=== PATIENT | male | born 1965 | race Caucasian/White ===

== ENCOUNTER 2016-07-18 01:54 | Emergency (ER) | payer MEDICARE ==
[2016-07-18] MEDS ORDERED: BENADRYL 50 MG/ML IM ONE (02:00)
[2016-07-18] MEDS ORDERED: solu-CORTEF 250MG IM ONE (02:01)
[2016-07-18] MEDS ORDERED: solu-CORTEF 250MG ONE (02:04)
[2016-07-18] MEDS ORDERED: BENADRYL 50 MG/ML ONE (02:04)
--- NOTE | 2016-07-18 02:09 | ERPHSYRPT ---
- History of Present Illness Time Seen by Provider: 07/18/16 02:06 Source: patient Physician History: c/o skin rash, feels like tongue is swollen. took doxycycline approximately 3 hours ago. c/o shortness of breath Timing/Duration: today Severity: moderate Associated Symptoms: shortness of breath, other (skin rash) Allergies/Adverse Reactions: doxycycline Allergy (Verified 07/18/16 02:17) hives and tongue swelling Home Medications: Aspirin [Aspir 81] 81 mg PO DAILY 10/16/11 [History] Atorvastatin Calcium [Lipitor] 80 mg PO DAILY 10/16/11 [History] Digoxin 0.125 mg Tablet [Lanoxin 0.125MG TABLET] 0.125 mg PO DAILY [History] Furosemide 20 mg [Lasix 20 mg] 20 mg PO DAILY 10/16/11 [History] Isosorbide Mononitrate 60 mg [Imdur 60MG] 60 mg PO DAILY 10/16/11 [History] Lisinopril 5 mg PO DAILY 10/16/11 [History] Alprazolam [Xanax 0.5 mg] 0.5 mg PO HSPRN PRN 10/01/14 [History] Clopidogrel Bisulfate 75 mg [PLAVIX 75 MG Tablet] 75 mg PO DAILY 10/01/14 [History] Glipizide 10 mg [Glucotrol 10 MG] 10 mg PO BID 10/01/14 [History] Metformin HCl 1,000 mg PO BID 10/01/14 [History] Metoprolol Tartrate 25 mg PO DAILY 10/01/14 [History] Ranolazine [Ranexa] 500 mg PO BID 10/01/14 [History] Zolpidem Tartrate [Ambien] 10 mg PO HSPRN PRN 10/01/14 [History] Hx Tetanus, Diphtheria Vaccination/Date Given: Yes (2007) Hx Influenza Vaccination/Date Given: No Hx Pneumococcal Vaccination/Date Given: Yes (2015) - Review of Systems Constitutional: No Fever, No Chills Eyes: No Symptoms Ears, Nose, & Throat: No Symptoms Respiratory: Cough, No Dyspnea Cardiac: No Chest Pain, No Edema, No Syncope Abdominal/Gastrointestinal: No Abdominal Pain, No Nausea, No Vomiting, No Diarrhea Genitourinary Symptoms: No Dysuria Musculoskeletal: No Back Pain, No Neck Pain Skin: Rash Neurological: No Dizziness, No Focal Weakness, No Sensory Changes Psychological: No Symptoms Endocrine: No Symptoms All Other Systems: Reviewed and Negative - Past Medical History Pertinent Past Medical History: Yes Neurological History: No Pertinent History ENT History: No Pertinent History Cardiac History: Coronary Artery Disease, High Cholesterol, Hypertension, Myocardial Infarction ([place]) Respiratory History: COPD Endocrine Medical History: Diabetes Type II Musculoskeletal History: Other GI Medical History: No Pertinent History History: No Pertinent History Psycho-Social History: Depression Male Reproductive Disorders: No Pertinent History Other Medical History: "PROBLEMS WITH MY HEAD, MY NOSE, MY KNEES. - Past Surgical History Past Surgical History: Yes Neuro Surgical History: No Pertinent History Cardiac: CABG, Cardiac Stent Respiratory: No Pertinent History Gastrointestinal: No Pertinent History Genitourinary: No Pertinent History Musculoskeletal: No Pertinent History Male Surgical History: No Pertinent History - Social History Smoking Status: Former smoker Exposure to second hand smoke: No Drug Use: none Patient Lives Alone: No - Nursing Vital Signs Nursing Vital Signs: Initial Vital Signs Pulse Rate 95 Respiratory Rate 20 Blood Pressure [Right Arm] 98/67 Pain Intensity 0 - Physical Exam General Appearance: no apparent distress, alert Eye Exam: PERRL/EOMI, eyes nml inspection Ears, Nose, Throat Exam: normal ENT inspection, TMs normal, pharynx normal, moist mucous membranes Neck Exam: normal inspection, non-tender, supple, full range of motion Respiratory Exam: normal breath sounds, lungs clear, No respiratory distress Cardiovascular Exam: regular rate/rhythm, normal heart sounds, normal peripheral pulses Gastrointestinal/Abdomen Exam: soft, normal bowel sounds, No tenderness, No mass Back Exam: normal inspection, normal range of motion, No CVA tenderness, No vertebral tenderness Extremity Exam: normal inspection, normal range of motion, pelvis stable Neurologic Exam: alert, oriented x 3, cooperative, normal mood/affect, nml cerebellar function, nml station & gait, sensation nml, No motor deficits Skin Exam: normal color, warm, dry, No rash Lymphatic Exam: No adenopathy - Course Nursing assessment & vital signs reviewed: Yes Ordered Tests: Medication Summary Discontinued Medications Generic Name Dose Route Start Last Admin Trade Name Freq PRN Reason Stop Dose Admin Diphenhydramine HCl 50 mg 07/18/16 02:00 07/18/16 02:05 Benadryl 50 Mg/Ml IM 07/18/16 02:01 50 mg STAT ONE Administration Diphenhydramine HCl Confirm 07/18/16 02:04 Benadryl 50 Mg/Ml Administered 07/18/16 02:05 Dose 50 mg .ROUTE .STK-MED ONE Hydrocortisone Sodium Succinate 250 mg 07/18/16 02:01 07/18/16 02:05 Solu-Cortef 250mg IM 07/18/16 02:02 250 mg STAT ONE Administration Hydrocortisone Sodium Succinate Confirm 07/18/16 02:04 Solu-Cortef 250mg Administered 07/18/16 02:05 Dose 250 mg .ROUTE .STK-MED ONE - Progress Progress: improved Counseled pt/family regarding: diagnosis, need for follow-up - Departure Time of Disposition: 02:09 Departure Disposition: Home Clinical Impression: Allergic reaction to drug Qualifiers: Encounter type: initial encounter Qualified Code(s): T78.40XA - Allergy, unspecified, initial encounter Condition: Stable Critical Care Time: No Referrals: AURE MARTINEZ [Primary Care Provider] - Instructions: Adverse Drug Reaction -- Allergic Additional Instructions: ALLERGIC REACTION 1. There are several different reasons for the cause of an allergic reaction. If you are aware of a trigger, continue to avoid the problem. 2. If at any time you experience any of these signs or symptoms, you should seek medical attention immediately: A. Sudden onset of rash B. Wheezing C. Shortness of breath D. Thick tongue E. Dizziness 3. If you experience an allergic reaction and are treated in the emergency department, you should follow up with your family physician in order to determine how you will need to handle your allergy. Stop doxycycline. try to avoid doxycycline in future. Prescriptions: Methylprednisolone Packet [Medrol Dosepack] 4 mg PO UD #30 packet
[2016-07-18 02:10] VITALS: O2SAT 100
[2016-07-18 02:42] VITALS: BP 107/56; PULSE 78
== END 2016-07-18 02:42 | disposition home or self-care (01) ==
LOC: ED 01:54
DX: T78.40XA Allergy, unspecified, initial encounter (principal); T50.905A Adverse effect of unspecified drugs, medicaments and biological substances, initial encounter; R21 Rash and other nonspecific skin eruption; R06.02 Shortness of breath; I25.10 Atherosclerotic heart disease of native coronary artery without angina pectoris; E78.00 Pure hypercholesterolemia, unspecified; I10 Essential (primary) hypertension; J44.9 Chronic obstructive pulmonary disease, unspecified; E11.9 Type 2 diabetes mellitus without complications
CPT/HCPCS: 96372; 99284; J1200; J1720

== ENCOUNTER 2018-05-11 05:55 | Day surgery (SDC) | payer MEDICARE ==
[2018-05-11] MEDS ORDERED: DIPRIVAN 200 MG/20 ML IV ONE (05:56)
[2018-05-11] MEDS ORDERED: Lactated Ringers 1,000 ML IV SCH (06:30)
--- NOTE | 2018-05-11 07:47 | OP ---
SURGERY DATE/TIME: 05/11/2018 0703 PREOPERATIVE DIAGNOSIS: Dysphagia. POSTOPERATIVE DIAGNOSIS: Presumed delayed gastric emptying. PROCEDURE: EGD. SURGEON: Bhavik Le M.D. ANESTHESIA: MAC by Matt Chambers CRNA. ESTIMATED BLOOD LOSS: None. SPECIMENS: None. DESCRIPTION OF PROCEDURE: After informed written consent was obtained, the patient was taken to the endoscopy suite. He underwent monitored anesthesia and a bite block was inserted. The endoscope was inserted in the posterior oropharynx and under direct visualization the esophagus was traversed. The esophageal mucosa had a normal appearance free of any lesions or defects. There were no appreciable masses. No evidence of any strictures or other abnormalities. Upon entering the stomach there was a normal rugated gastric mucosa. There was a large amount of food debris present in the gastric cavity which obscured vision to most of the gastric cavity. Again, there were no obvious areas of bleeding or masses appreciable but the exam was definitely limited due to large amount of food particles. Upon withdrawal again the gastroesophageal junction and esophageal mucosa all appeared normal. The scope was removed and the patient was transferred to the recovery room in good condition. I discussed the case with the patient's mother. She does not believe he had anything to eat late last night. He had told us that he had been NPO since after midnight which suggests the most likely delayed gastric emptying as the culprit for food particles still present in the stomach. I have suggested they follow up with Dr. Marie and would recommend a gastric emptying study as the next step.
[2018-05-11 08:47] VITALS: BP 129/75; PULSE 65
[2018-05-11 08:48] VITALS: O2SAT 96
== END 2018-05-11 08:10 | disposition home or self-care (01) ==
LOC: SDC 05:55
PROVIDERS: ATTEND Family Medicine
DX: R13.10 Dysphagia, unspecified (principal); K30 Functional dyspepsia
CPT/HCPCS: 82962; J2704

== ENCOUNTER 2021-06-27 15:32 | Emergency (ER) | payer MEDICARE ==
[2021-06-27 16:21] LABS: Absolute Neutrophil Ct (ANC) 4.21 (1.4-6.9); Basophil (Absolute #) 0.03 (0-0.4); Eosinophil % 4.8 % (0.00-5.0); Eosinophil (Absolute #) 0.33 (0-0.5); Hematocrit 42.2 % (42-50); Hemoglobin 14.2 gm/dl (12.5-18.0); Lymphocyte (Absolute #) 1.84 (1.0-4.6); Mean Cell Volume 90.9 fl (78-100); Mean Corpuscular Hemoglobin 30.6 pg (26-32); Mean Corpuscular Hgb Concent. 33.6 g/dl (32-36); Mean Platelet Volume 9.3 fl (7.5-11.0); Monocytes % 5.9 % (0.0-12.0); Neutrophil % 61.9 % (36.0-66.0); Platelet Count 244 K/mm3 (150-450); Red Blood Count 4.64 M/mm3 (4.1-5.6); Red Cell Distribution Width 13.4 % (11.5-14.0); White Blood Count 6.8 K/mm3 (4.0-10.5)
[2021-06-27 16:23] LABS: INR 0.99 (0.8-3.0); PROTIME 11.7 SECONDS (9.4-12.5)
[2021-06-27 16:26] LABS: PTT 28.6 SECONDS (25.1-36.5)
[2021-06-27 16:28] LABS: ALBUMIN 4.2 g/dL (3.5-5.0); ANION GAP 12.6 MEQ/L (5-15); BILIRUBIN,TOTAL 0.7 mg/dL (0.2-1.3); Calcium 9.5 mg/dL (8.4-10.2); Creatinine 1 1.32 mg/dL (0.66-1.25); EST GLOMERULAR FILTRATION RATE 59.2 ML/MIN; Potassium 4.7 mmol/L (3.5-5.1); Total Protein 6.8 g/dL (6.3-8.2)
--- NOTE | 2021-06-27 16:54 | ERPHSYRPT ---
- History of Present Illness Source: patient Exam Limitations: other (Poor historian) Patient Subjective Stated Complaint: Pt states "My head has been hurting for a couple days and it shoots down the back of my neck. I have really bad acid reflux too and it is making my esophagus and chest burn." Triage Nursing Assessment: Pt alert and oriented x3, skin pink, warm, and dry, pt c/o headache and acid reflux that is making his chest and esophagus burn. pt took 1 nitro at 1430 and stated it made his chest fell better Physician History: 56 yo wm w global LARIOS x 2wks. Pt describes the pain as pressure and states that it is 1/10 on pain scale and nothing makes it better or worse. He has also been having mild chest pain described as "burning". It is accompanied by nausea but denies dyspnea/diaphoresis. Timing/Duration: week(s) (2 weeks) Quality: pressure Head Pain Location: global Severity of Pain-Max: mild Severity of Pain-Current: mild Recent Head Trauma: no recent headache/trauma, occasional headaches Modifying Factors: Improves With: other (Nothing makes it better or worse) Associated Symptoms: nausea/vomiting, nasal congestion, nasal drainage, No confusion, No dizziness, No fatigue, No facial pain, No fever/chills, No flushing, No light-headedness, No loss of consciousness, No neck pain, No numbness in legs/feet, No rash, No sweating, No scotoma, No seizures, No sinus infection, No sensitive to light, No speech problems, No stiff neck, No trouble walking, No vision changes, No visual disturbance, No weakness Previous symptoms: same symptoms as today Allergies/Adverse Reactions: doxycycline Allergy (Severe, Verified 05/11/18 06:08) hives and tongue swelling rosuvastatin [From Crestor] Allergy (Verified 05/11/18 06:08) Tightness of Throat Home Medications: Aspirin [Aspir 81] 81 mg PO DAILY 10/16/11 [History] Atorvastatin Calcium [Lipitor] 80 mg PO DAILY 10/16/11 [History] Furosemide 20 mg [Lasix 20 mg] 20 mg PO DAILY 10/16/11 [History] Isosorbide Mononitrate 60 mg [Imdur 60MG] 60 mg PO DAILY 10/16/11 [History] lisinopriL [Lisinopril] 5 mg PO DAILY 10/16/11 [History] Clopidogrel Bisulfate 75 mg [PLAVIX 75 MG Tablet] 75 mg PO DAILY 10/01/14 [History] Glipizide 10 mg [Glucotrol 10 MG] 10 mg PO BID 10/01/14 [History] Metformin HCl 1,000 mg PO BID 10/01/14 [History] Metoprolol Tartrate 25 mg PO DAILY 10/01/14 [History] Zolpidem Tartrate [Ambien] 10 mg PO HSPRN PRN 10/01/14 [History] Hx Tetanus, Diphtheria Vaccination/Date Given: Yes (2007) Hx Influenza Vaccination/Date Given: No Hx Pneumococcal Vaccination/Date Given: Yes (2015) Travel Risk - International Travel Have you traveled outside of the country in past 3 weeks: No - Coronavirus Screening Are you exhibiting any of the following symptoms?: No Close contact with a COVID-19 positive Pt in past 14-21 Days: No - Vaccine Status Have you recieved a Covid-19 vaccination: Yes [employer]: [employer] - Review of Systems Constitutional: No Symptoms Eyes: No Symptoms Ears, Nose, & Throat: No Symptoms, Nose Congestion, Nose Discharge Respiratory: No Symptoms, Dyspnea Cardiac: Chest Pain, No Edema, No Palpitations, No Syncope, No Orthopnea, No PND Abdominal/Gastrointestinal: No Symptoms, Abdominal Pain, Nausea, Dysphagia, No Vomiting, No Diarrhea, No Constipation, No Hematemesis, No Hematochezia, No Me etta, No Appetite Changes Genitourinary Symptoms: No Symptoms Musculoskeletal: No Symptoms Skin: No Symptoms Neurological: Headache, No Dizziness, No Focal Weakness, No Gait Changes, No Irritability, No Lethargy, No Paralysis, No Parasthesia, No Seizure, No Sensory Changes, No Speech Changes, No Tics, No Tremors, No Vertigo Psychological: No Symptoms Endocrine: No Symptoms Hematologic/Lymphatic: No Symptoms Immunological/Allergic: No Symptoms - Past Medical History Pertinent Past Medical History: Yes Neurological History: No Pertinent History ENT History: No Pertinent History Cardiac History: Coronary Artery Disease, High Cholesterol, Hypertension, Myocardial Infarction ([place]) Respiratory History: COPD Endocrine Medical History: Diabetes Type II Musculoskeletal History: Other GI Medical History: No Pertinent History History: No Pertinent History Psycho-Social History: Depression Male Reproductive Disorders: No Pertinent History Other Medical History: states has 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, states " poor kidney function" - Past Surgical History Past Surgical History: Yes Neuro Surgical History: No Pertinent History Cardiac: CABG, Cardiac Stent Respiratory: No Pertinent History Gastrointestinal: No Pertinent History, Cholecystectomy Genitourinary: No Pertinent History Musculoskeletal: No Pertinent History Male Surgical History: No Pertinent History Other Surgical History: open heart surgery 2001 and 2006 - Social History Smoking Status: Former smoker Exposure to second hand smoke: No Drug Use: none Patient Lives Alone: No Significant Family History: no pertinent family hx - Nursing Vital Signs Nursing Vital Signs: Initial Vital Signs Temperature 97.6 F 06/27/21 15:38 Pulse Rate 94 H 06/27/21 15:38 Respiratory Rate 12 06/27/21 15:38 Blood Pressure 170/85 06/27/21 15:38 O2 Sat by Pulse Oximetry 100 06/27/21 15:38 Pain Scale Pain Intensity 1 Hypertensive - Physical Exam General Appearance: no apparent distress Eye Exam: PERRL/EOMI, eyes nml inspection Ears, Nose, Throat Exam: normal ENT inspection, TMs normal, pharynx normal, moist mucous membranes, tonsillar exudate Neck Exam: normal inspection, non-tender, supple, No meningismus, No mass, No Brudzinski, No Kernig's, No carotid bruit Respiratory Exam: normal breath sounds, lungs clear, airway intact, No chest tenderness, No respiratory distress Cardiovascular Exam: regular rate/rhythm, normal heart sounds, normal peripheral pulses, No murmur Gastrointestinal/Abdominal Exam: soft, normal bowel sounds, No tenderness Back Exam: normal inspection, normal range of motion, No CVA tenderness Extremity Exam: normal inspection, normal range of motion Mental Status Exam: alert, oriented x 3, cooperative forestry technician Exam: normal hearing, normal speech, PERRL, No abnormal eye position, No abnormal gag reflex, No facial asymmetry Coordination/Gait Exam: normal gait, normal cerebellar function, negative Romberg's sign Motor/Sensory Exam: no motor deficit, no sensory deficit, no pronator drift, negative Babinski's sign DTR Exam: bicep (R): 2+, bicep (L): 2+ Skin Exam: normal color, warm, dry, No rash Lymphatic Exam: No adenopathy SpO2 Interpretation: normal SpO2: 99 O2 Delivery: Room Air - Course Nursing assessment & vital signs reviewed: Yes EKG Interpreted by Me: RATE (Sinus vaughn/Rate 57/Normal QT-QTc/Possible old in ferior SC/Nonspecific Twave abnormality) - Radiology Exams Chest X-ray Interpretation: Interpreted by me (Post-surgical chest, nothing acute) - CT Exams Head CT Interpretation: Discussed w/radiologist (NAD) Ordered Tests: Active Orders 24 hr Category Date Time Status EKG-ER Only STAT Care 06/27/21 16:03 Completed IV Insertion STAT Care 06/27/21 16:03 Completed CHEST 1 VIEW (PORTABLE) Stat Exams 06/27/21 16:04 Completed HEAD WITHOUT CONTRAST [CT] Stat Exams 06/27/21 16:05 Completed AMYLASE Stat Lab 06/27/21 16:17 Completed CBC W DIFF Stat Lab 06/27/21 16:17 Completed CMP Stat Lab 06/27/21 16:17 Completed LIPASE Stat Lab 06/27/21 16:17 Completed PROTIME WITH INR Stat Lab 06/27/21 16:17 Completed PTT Stat Lab 06/27/21 16:17 Completed TROPONIN Q3H Lab 06/27/21 16:17 Completed TROPONIN Q3H Lab 06/27/21 19:20 Completed Lab/Rad Data: Laboratory Result Diagrams 06/27/21 16:17 06/27/21 16:17 Laboratory Results 06/27/21 06/27/21 06/27/21 Range/Units 19:20 16:17 16:17 WBC (4.0-10.5) K/mm3 RBC (4.1-5.6) M/mm3 Hgb (12.5-18.0) gm/dl Hct (42-50) % MCV (78-100) fl MCH (26-32) pg MCHC (32-36) g/dl RDW (11.5-14.0) % Plt Count (150-450) K/mm3 MPV (7.5-11.0) fl Gran % (36.0-66.0) % Eos # (Auto) (0-0.5) Absolute Lymphs (auto) (1.0-4.6) Absolute Monos (auto) (0.0-1.3) Lymphocytes % (24.0-44.0) % Monocytes % (0.0-12.0) % Eosinophils % (0.00-5.0) % Basophils % (0.0-0.4) % Absolute Granulocytes (1.4-6.9) Basophils # (0-0.4) PT 11.7 (9.4-12.5) SECONDS INR 0.99 (0.8-3.0) APTT 28.6 (25.1-36.5) SECONDS Sodium (137-145) mmol/L Potassium (3.5-5.1) mmol/L Chloride (98-107) mmol/L Carbon Dioxide (22-30) mmol/L Anion Gap (5-15) MEQ/L BUN (9-20) mg/dL Creatinine (0.66-1.25) mg/dL Estimated GFR ML/MIN Glucose (74-106) mg/dL Calcium (8.4-10.2) mg/dL Total Bilirubin (0.2-1.3) mg/dL AST (17-59) U/L ALT (0-50) U/L Alkaline Phosphatase (38-126) U/L Troponin I < 0.012 < 0.012 (0.000-0.034) ng/mL Serum Total Protein (6.3-8.2) g/dL Albumin (3.5-5.0) g/dL Amylase (30-110) U/L Lipase (23-300) U/L 06/27/21 06/27/21 Range/Units 16:17 16:17 WBC 6.8 (4.0-10.5) K/mm3 RBC 4.64 (4.1-5.6) M/mm3 Hgb 14.2 (12.5-18.0) gm/dl Hct 42.2 (42-50) % MCV 90.9 (78-100) fl MCH 30.6 (26-32) pg MCHC 33.6 (32-36) g/dl RDW 13.4 (11.5-14.0) % Plt Count 244 (150-450) K/mm3 MPV 9.3 (7.5-11.0) fl Gran % 61.9 (36.0-66.0) % Eos # (Auto) 0.33 (0-0.5) Absolute Lymphs (auto) 1.84 (1.0-4.6) Absolute Monos (auto) 0.40 (0.0-1.3) Lymphocytes % 27.0 (24.0-44.0) % Monocytes % 5.9 (0.0-12.0) % Eosinophils % 4.8 (0.00-5.0) % Basophils % 0.4 (0.0-0.4) % Absolute Granulocytes 4.21 (1.4-6.9) Basophils # 0.03 (0-0.4) PT (9.4-12.5) SECONDS INR (0.8-3.0) APTT (25.1-36.5) SECONDS Sodium 137 (137-145) mmol/L Potassium 4.7 (3.5-5.1) mmol/L Chloride 102 (98-107) mmol/L Carbon Dioxide 27 (22-30) mmol/L Anion Gap 12.6 (5-15) MEQ/L BUN 22 H (9-20) mg/dL Creatinine 1.32 H (0.66-1.25) mg/dL Estimated GFR 59.2 ML/MIN Glucose 230 H (74-106) mg/dL Calcium 9.5 (8.4-10.2) mg/dL Total Bilirubin 0.70 (0.2-1.3) mg/dL AST 28 (17-59) U/L ALT 34 (0-50) U/L Alkaline Phosphatase 90 (38-126) U/L Troponin I (0.000-0.034) ng/mL Serum Total Protein 6.8 (6.3-8.2) g/dL Albumin 4.2 (3.5-5.0) g/dL Amylase 77 (30-110) U/L Lipase 143 (23-300) U/L - Progress Progress: improved Progress Note: 06/27/21 20:21 Pt refused pain meds during entire stay Chest pain 0-1 during entire stay. Pain is atypical, 2wks duration, and secondary to the headache which he presented with. Pt has an appointment w Dr. Crespo on 07/01/21. 06/27/21 20:23 06/27/21 22:55 Counseled pt/family regarding: lab results, diagnosis, need for follow-up, rad results - Departure Departure Disposition: Home Clinical Impression: Headache Qualifiers: Headache chronicity pattern: chronic headache Intractability: intractable Chest pain Qualifiers: Chest pain type: unspecified Qualified Code(s): R07.9 - Chest pain, unspecified Condition: Stable Critical Care Time: No Referrals: AURE CHAVEZ [Primary Care Provider] - Follow up/PCP as directed Instructions: Chest Pain (DC), Headache, Adult (DC) Additional Instructions: Follow up with your manager fast food on Wednesday Return to ER for increasing/sustained chest pain or increasing shortness of breath Prescriptions: PANTOPRAZOLE 40 mg Tablet [Protonix 40MG Tablet] 40 mg PO QPM #30 tab
[2021-06-27 20:22] VITALS: BP 116/77; PULSE 78
[2021-06-27 20:26] VITALS: O2SAT 99
--- NOTE | 2021-06-27 22:13 | XRAY ---
Indication: Severe headache one week. Multiple contiguous axial images obtained through the head without contrast. Comparison: None Normal appearing brain parenchyma, ventricles, and bony calvarium. Subcentimeter right maxillary sinus polyp/retention cyst. Remaining visualized paranasal sinuses and mastoid air cells are clear. Impression: Tiny right maxillary sinus polyp/retention cyst. Remaining CT head without contrast exam is normal.
--- NOTE | 2021-06-27 22:15 | XRAY ---
Indication: Chest burning. Comparison: May 10, 2020. Portable apical lordotic chest is now clear. Heart not enlarged for AP portable technique again with CABG. No new/acute cardiopulmonary abnormalities.
== END 2021-06-27 20:39 | disposition home or self-care (01) ==
LOC: ED 15:32
DX: R51.9 Headache, unspecified (principal); R07.9 Chest pain, unspecified; E78.5 Hyperlipidemia, unspecified; I10 Essential (primary) hypertension; J44.9 Chronic obstructive pulmonary disease, unspecified; E11.9 Type 2 diabetes mellitus without complications; Z79.84 Long term (current) use of oral hypoglycemic drugs; Z79.01 Long term (current) use of anticoagulants; Z79.899 Other long term (current) drug therapy
CPT/HCPCS: 36000; 36415; 70450; 71045; 80053; 82150; 83690; 84484; 85025; 85610; 85730; 93005; 99284

== ENCOUNTER 2022-01-15 15:33 | Observation (INO) | payer MEDICARE ==
[2022-01-15 19:40] LABS: Absolute Neutrophil Ct (ANC) 4.91 x10^3/uL (1.4-6.9); Basophil (Absolute #) 0.06 x10^3/uL (0-0.4); Eosinophil % 3.4 % (0.00-5.0); Eosinophil (Absolute #) 0.25 x10^3/uL (0-0.5); Hematocrit 39.6 % (42-50); Hemoglobin 13.6 g/dL (12.5-18.0); Lymphocyte (Absolute #) 1.64 x10^3/uL (1.0-4.6); Lymphocytes % 22.5 % (24.0-44.0); Mean Cell Volume 89.6 fL (78-100); Mean Corpuscular Hemoglobin 30.8 pg (26-32); Mean Corpuscular Hgb Concent. 34.3 g/dL (32-36); Monocytes % 5.5 % (0.0-12.0); Neutrophil % 67.4 % (36.0-66.0); Platelet Count 246 x10^3/uL (150-450); Red Blood Count 4.42 x10^6/uL (4.1-5.6); Red Cell Distribution Width 12.9 % (11.5-14.0); White Blood Count 7.3 x10^3/uL (4.0-10.5)
[2022-01-15 19:55] LABS: ALBUMIN 4.2 g/dL (3.5-5.0); ANION GAP 14.2 MEQ/L (5-15); BILIRUBIN,TOTAL 0.5 mg/dL (0.2-1.3); Calcium 8.8 mg/dL (8.4-10.2); Creatinine 1 1.7 mg/dL (0.66-1.25); EST GLOMERULAR FILTRATION RATE 44.2 ML/MIN; Potassium 4.3 mmol/L (3.5-5.1); Total Protein 6.8 g/dL (6.3-8.2)
[2022-01-15 20:20] LABS: INFLUENZA A NEGATIVE (NEGATIVE); INFLUENZA B NEGATIVE (NEGATIVE); RESPIRATORY SYNCTIAL VIRUS NEGATIVE (Negative); SARS-CoV-2 Xpert Express NEGATIVE (NEGATIVE)
[2022-01-15] MEDS ORDERED: Lactated Ringers 1,000 ML IV ONE ×2 (20:21→20:26)
[2022-01-15] MEDS ORDERED: MORPHINE SULFATE 10 MG/ML IV PRN (20:25)
[2022-01-15] MEDS ORDERED: Zofran 4 MG/2 ML VIAL IV PRN (20:26)
[2022-01-15] MEDS: Lactated Ringers 1,000 ML IV SCH (20:46)
[2022-01-15 20:59] LABS: Appearance CLEAR (CLEAR); Bilirubin NEGATIVE (NEGATIVE); Dipstick done @ ? MAIN LAB; Glucose NEGATIVE (NEGATIVE); Ketones NEGATIVE (NEGATIVE); Nitrite NEGATIVE (NEGATIVE); Ph 5.5 (5-6); Protein,Urine Dip NEGATIVE (Negative); RBC NEGATIVE Ery/ul (0-5); Urobilinogen 0.2 mg/dL (0-1)
[2022-01-15 21:03] LABS: Mucus SLIGHT /HPF (NEGATIVE)
[2022-01-15 21:08] LABS: Urine Cultured Indicated? NO
[2022-01-15] MEDS ORDERED: Protonix 40MG Tablet PO SCH (22:00)
[2022-01-16] MEDS: Ambien 10 MG PO PRN ×2 (00:21→23:54)
[2022-01-16 05:05] LABS: Absolute Neutrophil Ct (ANC) 3.81 x10^3/uL (1.4-6.9); Basophil (Absolute #) 0.05 x10^3/uL (0-0.4); Eosinophil (Absolute #) 0.27 x10^3/uL (0-0.5); Hematocrit 36.2 % (42-50); Hemoglobin 12.7 g/dL (12.5-18.0); Lymphocyte (Absolute #) 2.27 x10^3/uL (1.0-4.6); Lymphocytes % 33.2 % (24.0-44.0); Mean Cell Volume 88.3 fL (78-100); Mean Corpuscular Hgb Concent. 35.1 g/dL (32-36); Mean Platelet Volume 8.9 fL (7.5-11.0); Monocyte (Absolute #) 0.41 x10^3/uL (0.0-1.3); Neutrophil % 55.8 % (36.0-66.0); Platelet Count 223 x10^3/uL (150-450); Red Cell Distribution Width 12.9 % (11.5-14.0); White Blood Count 6.8 x10^3/uL (4.0-10.5)
[2022-01-16 05:22] LABS: ALBUMIN 3.6 g/dL (3.5-5.0); ANION GAP 7.2 MEQ/L (5-15); BILIRUBIN,TOTAL 0.6 mg/dL (0.2-1.3); Calcium 8.7 mg/dL (8.4-10.2); Creatinine 1 1.59 mg/dL (0.66-1.25); EST GLOMERULAR FILTRATION RATE 47.8 ML/MIN; Potassium 4.2 mmol/L (3.5-5.1); Total Protein 6.1 g/dL (6.3-8.2)
[2022-01-16] MEDS: Lactated Ringers 1,000 ML IV SCH ×3 (05:29→21:14)
--- NOTE | 2022-01-16 08:11 | PCM.NOTE ---
Date and Time: 01/16/22 0807 Subjective Assessment: patient direct admit per Dr Patricia with abd pain and nausea. he denies pain in the abdomen this morning, no vomiting overnight, denies nausea today. only current complaint is pain in his back. patient had a cholecystectomy 3 years ago for gallstones Objective Exam General Appearance: no apparent distress, obese Neurologic Exam: alert, oriented x 3 Respiratory Exam: normal breath sounds, lungs clear, No respiratory distress Cardiovascular Exam: regular rate/rhythm, normal heart sounds Gastrointestinal/Abdomen Exam: soft, No tenderness, No mass OBJECTIVE DATA Vital Signs: Vital Signs - 24 hr Temp Pulse Resp BP Pulse Ox 01/16/22 04:00 98.9 F 54 L 18 115/65 97 01/15/22 23:40 97.7 F 68 20 147/69 98 01/15/22 20:04 97.3 F 86 24 123/77 98 01/15/22 19:22 97.3 F 86 24 123/77 98 Pain Assessment - Last Documented Pain Intensity 0 Intake and Output: Intake & Output 01/13/22 01/14/22 01/15/22 01/16/22 11:59 11:59 11:59 11:59 Intake Total 2381 Output Total 1210 Balance 1171 Weight 114.4 kg Lab Results: Lab Results-Last 24 Hours 01/15/22 01/15/22 01/15/22 Range/Units 19:37 19:37 19:41 WBC 7.3 (4.0-10.5) x10^3/uL RBC 4.42 (4.1-5.6) x10^6/uL Hgb 13.6 (12.5-18.0) g/dL Hct 39.6 L (42-50) % MCV 89.6 (78-100) fL MCH 30.8 (26-32) pg MCHC 34.3 (32-36) g/dL RDW 12.9 (11.5-14.0) % Plt Count 246 (150-450) x10^3/uL MPV 9.0 (7.5-11.0) fL Gran % 67.4 H (36.0-66.0) % Immature Gran % (Auto) 0.4 (0.00-0.4) % Nucleat RBC Rel Count 0.0 (0.00-0.1) % Eos # (Auto) 0.25 (0-0.5) x10^3/uL Immature Gran # (Auto) 0.03 (0.00-0.03) x10^3u/L Absolute Lymphs (auto) 1.64 (1.0-4.6) x10^3/uL Absolute Monos (auto) 0.40 (0.0-1.3) x10^3/uL Absolute Nucleated RBC 0.00 (0.00-0.01) x10^3u/L Lymphocytes % 22.5 L (24.0-44.0) % Monocytes % 5.5 (0.0-12.0) % Eosinophils % 3.4 (0.00-5.0) % Basophils % 0.8 (0.0-0.4) % Absolute Granulocytes 4.91 (1.4-6.9) x10^3/uL Basophils # 0.06 (0-0.4) x10^3/uL Sodium 137 (137-145) mmol/L Potassium 4.3 (3.5-5.1) mmol/L Chloride 102 (98-107) mmol/L Carbon Dioxide 25 (22-30) mmol/L Anion Gap 14.2 (5-15) MEQ/L BUN 29 H (9-20) mg/dL Creatinine 1.70 H (0.66-1.25) mg/dL Estimated GFR 44.2 ML/MIN Glucose 154 H (74-106) mg/dL Calcium 8.8 (8.4-10.2) mg/dL Total Bilirubin 0.50 (0.2-1.3) mg/dL AST 25 (17-59) U/L ALT 34 (0-50) U/L Alkaline Phosphatase 82 (38-126) U/L Serum Total Protein 6.8 (6.3-8.2) g/dL Albumin 4.2 (3.5-5.0) g/dL Urinalys Dipstick Clnc Urine Color (YELLOW) Urine Appearance (CLEAR) Urine pH (5-6) Ur Specific [place] (1.005-1.025) POC Urine Protein Conf (Negative) Urine Ketones (NEGATIVE) Urine Nitrite (NEGATIVE) Urine Bilirubin (NEGATIVE) Urine Urobilinogen (0-1) mg/dL Urine Leukocytes (NEGATIVE) Urine WBC (Auto) (0-5) /HPF Urine RBC (Auto) (0-2) /HPF U Epithel Cells (Auto) (FEW) /HPF Urine Bacteria (Auto) (NEGATIVE) /HPF Urine RBC (0-5) Pedro/ul Urine Mucus (Auto) (NEGATIVE) /HPF Ur Culture Indicated? Urine Glucose (NEGATIVE) mg/dL Influenza Type A Ag NEGATIVE (NEGATIVE) Influenza Type B Ag NEGATIVE (NEGATIVE) RSV (PCR) NEGATIVE (Negative) SARS-CoV-2 (PCR) NEGATIVE (NEGATIVE) 01/15/22 01/16/22 01/16/22 Range/Units 20:49 04:30 04:30 WBC 6.8 (4.0-10.5) x10^3/uL RBC 4.10 (4.1-5.6) x10^6/uL Hgb 12.7 (12.5-18.0) g/dL Hct 36.2 L (42-50) % MCV 88.3 (78-100) fL MCH 31.0 (26-32) pg MCHC 35.1 (32-36) g/dL RDW 12.9 (11.5-14.0) % Plt Count 223 (150-450) x10^3/uL MPV 8.9 (7.5-11.0) fL Gran % 55.8 (36.0-66.0) % Immature Gran % (Auto) 0.3 (0.00-0.4) % Nucleat RBC Rel Count 0.0 (0.00-0.1) % Eos # (Auto) 0.27 (0-0.5) x10^3/uL Immature Gran # (Auto) 0.02 (0.00-0.03) x10^3u/L Absolute Lymphs (auto) 2.27 (1.0-4.6) x10^3/uL Absolute Monos (auto) 0.41 (0.0-1.3) x10^3/uL Absolute Nucleated RBC 0.00 (0.00-0.01) x10^3u/L Lymphocytes % 33.2 (24.0-44.0) % Monocytes % 6.0 (0.0-12.0) % Eosinophils % 4.0 (0.00-5.0) % Basophils % 0.7 (0.0-0.4) % Absolute Granulocytes 3.81 (1.4-6.9) x10^3/uL Basophils # 0.05 (0-0.4) x10^3/uL Sodium 137 (137-145) mmol/L Potassium 4.2 (3.5-5.1) mmol/L Chloride 104 (98-107) mmol/L Carbon Dioxide 30 (22-30) mmol/L Anion Gap 7.2 (5-15) MEQ/L BUN 25 H (9-20) mg/dL Creatinine 1.59 H (0.66-1.25) mg/dL Estimated GFR 47.8 ML/MIN Glucose 109 H (74-106) mg/dL Calcium 8.7 (8.4-10.2) mg/dL Total Bilirubin 0.60 (0.2-1.3) mg/dL AST 21 (17-59) U/L ALT 30 (0-50) U/L Alkaline Phosphatase 67 (38-126) U/L Serum Total Protein 6.1 L (6.3-8.2) g/dL Albumin 3.6 (3.5-5.0) g/dL Urinalys Dipstick Clnc MAIN LAB Urine Color YELLOW (YELLOW) Urine Appearance CLEAR (CLEAR) Urine pH 5.5 (5-6) Ur Specific [place] 1.020 (1.005-1.025) POC Urine Protein Conf NEGATIVE (Negative) Urine Ketones NEGATIVE (NEGATIVE) Urine Nitrite NEGATIVE (NEGATIVE) Urine Bilirubin NEGATIVE (NEGATIVE) Urine Urobilinogen 0.2 (0-1) mg/dL Urine Leukocytes NEGATIVE (NEGATIVE) Urine WBC (Auto) NONE (0-5) /HPF Urine RBC (Auto) NONE (0-2) /HPF U Epithel Cells (Auto) NONE (FEW) /HPF Urine Bacteria (Auto) NONE (NEGATIVE) /HPF Urine RBC NEGATIVE (0-5) Pedro/ul Urine Mucus (Auto) SLIGHT (NEGATIVE) /HPF Ur Culture Indicated? NO Urine Glucose NEGATIVE (NEGATIVE) mg/dL Influenza Type A Ag (NEGATIVE) Influenza Type B Ag (NEGATIVE) RSV (PCR) (Negative) SARS-CoV-2 (PCR) (NEGATIVE) Radiology Exams: Radiology Procedures Category Date Time Status ABDOMEN AND PELVIS W/0 CONTRAS [CT] Urgent Exams 01/15/22 22:18 Taken Assessment/Plan (1) Abdominal pain Current Visit: Yes Status: Acute Assessment & Plan: has a benign exam, ct scan pending. patient is NPO and appears surgery has been consulted for an egd, continue protonix will change to IV since he is NPO Code(s): R10.9 - UNSPECIFIED ABDOMINAL PAIN (2) Nausea Current Visit: Yes Status: Acute Code(s): R11.0 - NAUSEA (3) Diabetes Current Visit: Yes Status: Acute Code(s): E11.9 - TYPE 2 DIABETES MELLITUS WITHOUT COMPLICATIONS
[2022-01-16] MEDS ORDERED: HUMALOG SQ PRN (08:12)
[2022-01-16] MEDS: PROTONIX 40 MG IV IV SCH (08:23)
--- NOTE | 2022-01-16 08:24 | XRAY ---
Indication: Right upper quadrant pain and reflux. History acute renal failure. Multiple contiguous axial images obtained through the abdomen and pelvis without contrast. Enteric contrast was given. Comparison: August 28, 2014 Lung bases clear again with small right base calcified granuloma. Heart not enlarged. Distal esophagus demonstrates new circumferential wall thickening, probable reflux esophagitis. Contrasted stomach and bowel loops appear nonobstructed with normal appendix. Again mild scattered descending and sigmoid diverticulosis without diverticulitis. Interval cholecystectomy. No free fluid/air. Remaining liver, pancreas, spleen, adrenal glands, kidneys, ureters, and bladder are unremarkable for noncontrast exam. There remains mild scattered aortoiliac calcifications without AAA. Osseous structures intact with minimal degenerative spondylosis throughout the thoracolumbar spine and new 3-4 mm L4 anterolisthesis. Impression: 1. New distal esophageal circumferential wall thickening. Rule out reflux esophagitis. 2. Again colonic diverticulosis and arteriosclerotic disease. 3. Incidental multilevel degenerative spondylosis and grade 1 L4 listhesis. Comment: Preliminary interpretation made by [facility]. No critical discrepancy.
[2022-01-16] MEDS: Imdur 60MG PO SCH (10:52)
[2022-01-16] MEDS: Zestril 10 MG PO SCH (10:52)
[2022-01-16] MEDS: Toprol-Xl 25MG Tablets PO SCH ×2 (10:52→21:10)
[2022-01-16] MEDS ORDERED: Xylocaine-Mpf 2% 5 Ml Vial ONE (16:58)
[2022-01-16] MEDS ORDERED: DIPRIVAN 200 MG/20 ML IV ONE (16:58)
[2022-01-16] MEDS ORDERED: ATROPINE SULFATE 1MG ONE (17:06)
[2022-01-16] MEDS ORDERED: ZOCOR 20MG PO SCH (22:00)
[2022-01-16] MEDS ORDERED: NON-FORMULARY ITEM (Rosuvastatin Calcium [Rosuvastatin Calcium] 40 MG Tablet) PO SCH (22:00)
[2022-01-17] MEDS: PROTONIX 40 MG IV IV SCH (07:57)
[2022-01-17] MEDS: Toprol-Xl 25MG Tablets PO SCH (09:42)
[2022-01-17] MEDS: Imdur 60MG PO SCH (09:42)
[2022-01-17] MEDS: Zestril 10 MG PO SCH (09:43)
[2022-01-17] MEDS: Lactated Ringers 1,000 ML IV SCH (09:44)
[2022-01-17 13:18] VITALS: BP 128/65; PULSE 52; O2SAT 94
--- NOTE | 2022-01-19 10:06 | OP ---
SURGERY DATE/TIME: 01/16/2022 1702 PREOPERATIVE DIAGNOSES: 1) Epigastric pain. 2) CT scan showing abnormality in the distal esophagus. POSTOPERATIVE DIAGNOSES: 1) Schatzki's ring. 2) Muscular hypertrophy of distal esophagus. 3) Some residual bile in upper stomach. 4) Presumed gastroparesis as contraction waves were really not seen in the stomach. The patient is diabetic. PROCEDURE: EGD. SURGEON: Dr. Ervin Donato. ANESTHESIA: MAC. COMPLICATIONS: None. CONDITION: Stable. INDICATION: A patient requiring evaluation. DESCRIPTION OF PROCEDURE: Taken to endoscopy. Left lateral decubitus position. MAC sedation by Sky Thomas CRNA. Scope introduced. Pharyngoesophageal junction normal. Esophagus normal down to gastroesophageal junction. Grade II gastroesophageal reflux disease. A 2 inch hiatal hernia. Fundus, body, antrum normal. Pylorus normal. Duodenal bulb normal. Second portion normal. Scope looped upon itself and the gastroesophageal junction was seen. There were no additional lesions. The patient tolerated the procedure satisfactorily.
== END 2022-01-17 13:38 | disposition home or self-care (01) ==
LOC: MED SURG 18:39
PROVIDERS: ADMIT Family Medicine; ATTEND Family Medicine
DX: K22.2 Esophageal obstruction (principal); R10.13 Epigastric pain; R93.89 Abnormal findings on diagnostic imaging of other specified body structures; Q79.1 Other congenital malformations of diaphragm; E11.9 Type 2 diabetes mellitus without complications; R10.9 Unspecified abdominal pain; R11.0 Nausea; Z79.899 Other long term (current) drug therapy; Z20.828 Contact with and (suspected) exposure to other viral communicable diseases
CPT/HCPCS: 0241U; 36415; 43235; 74176; 80053; 81015; 82947; 83036; 85025; G0378; 99140; J0461; J1817; J2704; A9270-GY

== ENCOUNTER 2022-12-01 15:26 | Emergency (ER) | payer MEDICARE ==
[2022-12-01 15:50] VITALS: TEMP 98.5
[2022-12-01 16:15] LABS: Absolute Neutrophil Ct (ANC) 4.53 x10^3/uL (1.4-6.9); BASOPHIL % 0.6 % (0.0-0.4); Basophil (Absolute #) 0.04 x10^3/uL (0-0.4); Eosinophil % 3.9 % (0.00-5.0); Eosinophil (Absolute #) 0.26 x10^3/uL (0-0.5); Hematocrit 42.5 % (42-50); Hemoglobin 14.1 g/dL (12.5-18.0); IMMATURE GRAN # 0.02 x10^3u/L (0.00-0.03); IMMATURE GRAN % 0.3 % (0.00-0.4); Lymphocyte (Absolute #) 1.56 x10^3/uL (1.0-4.6); Lymphocytes % 23.1 % (24.0-44.0); Mean Cell Volume 89.9 fL (78-100); Mean Corpuscular Hemoglobin 29.8 pg (26-32); Mean Corpuscular Hgb Concent. 33.2 g/dL (32-36); Monocyte (Absolute #) 0.34 x10^3/uL (0.0-1.3); Neutrophil % 67.1 % (36.0-66.0); Platelet Count 228 x10^3/uL (150-450); Red Blood Count 4.73 x10^6/uL (4.1-5.6); Red Cell Distribution Width 12.8 % (11.5-14.0); White Blood Count 6.8 x10^3/uL (4.0-10.5)
[2022-12-01 16:39] LABS: ALKALINE PHOSPHATASE 67 U/L (38-126); ANION GAP 13.8 MEQ/L (5-15); BLOOD UREA NITROGEN 20 mg/dL (9-20); CHLORIDE 105 mmol/L (98-107); Calcium 9.2 mg/dL (8.4-10.2); Carbon Dioxide 24 mmol/L (22-30); Creatinine 1 1.45 mg/dL (0.66-1.25); EST GLOMERULAR FILTRATION RATE 52.9 ML/MIN; Glucose 137 mg/dL (74-106); Potassium 4.7 mmol/L (3.5-5.1); SGOT/AST 26 U/L (17-59); SGPT/ALT 31 U/L (0-50); SODIUM 138 mmol/L (137-145); TROPONIN < 0.012 ng/mL (0.000-0.034); Total Protein 6.6 g/dL (6.3-8.2)
--- NOTE | 2022-12-01 18:32 | ERPHSYRPT ---
- History of Present Illness Time Seen by Provider: 12/01/22 15:40 Source: patient Exam Limitations: no limitations Patient Subjective Stated Complaint: C/O right upper abdominal pain Triage Nursing Assessment: Patient ambulated back to ER without difficulties. He is alert and oriented. No SOB. NO cough. VALENCIA WNL. Skin tone normal. Denies vomiting or changes in stool. Physician History: 57-year-old male presents to our ED for evaluation of epigastric discomfort radiating into his chest. Pain described as a burning sensation. Patient states he was here last week for the same. Patient had a cardiac work-up which was negative. Patient symptoms are mild to moderate in intensity. No specific worsening or improving factors. No associated nausea vomiting or diaphoresis. Patient voices no other complaints or concerns at this time. Portions of this note were created with voice recognition technology. There may be grammatical, spelling, punctuation or sound alike errors Timing/Duration: today Severity: moderate Modifying Factors: Improves With: nothing Associated Symptoms: denies symptoms Allergies/Adverse Reactions: No Known Drug Allergies Allergy (Verified 12/01/22 15:34) Home Medications: Aspirin [Aspir 81] 81 mg PO QHS 10/16/11 [History] Isosorbide Mononitrate 60 mg [Imdur 60MG] 60 mg PO DAILY 10/16/11 [History] lisinopriL [Lisinopril] 2.5 mg PO DAILY 10/16/11 [History] Clopidogrel Bisulfate [PLAVIX Tablet] 75 mg PO DAILY 10/01/14 [History] Glipizide 10 mg [Glucotrol 10 MG] 20 mg PO DAILY 10/01/14 [History] Metformin HCl 1,000 mg PO BID 10/01/14 [History] Zolpidem Tartrate [Ambien] 10 mg PO HSPRN PRN 10/01/14 [History] Metoprolol Succinate 25 mg Xl* [Toprol-Xl 25MG Tablets] 25 mg PO DAILY 01/15/22 [History] Rosuvastatin Calcium 40 mg PO QHS 01/15/22 [History] Albuterol 8 gm Mdi Hfa [Ventolin Hfa MDI] 2 puffs IH Q4H PRN PRN 11/05/22 [History] Empagliflozin [Jardiance] 10 mg PO DAILY 11/05/22 [History] Pregabalin 50 mg [Lyrica 50MG] 100 mg PO TID 11/05/22 [History] Tamsulosin HCl 0.4 mg [Flomax 0.4 MG] 0.4 mg PO DAILY 11/05/22 [History] Hx Tetanus, Diphtheria Vaccination/Date Given: Yes Hx Influenza Vaccination/Date Given: No Hx Pneumococcal Vaccination/Date Given: Yes (2015) Immunizations Up to Date: Yes Travel Risk - International Travel Have you traveled outside of the country in past 3 weeks: No - Coronavirus Screening Are you exhibiting any of the following symptoms?: No Close contact with a COVID-19 positive Pt in past 14-21 Days: No - Vaccine Status Have you recieved a Covid-19 vaccination: Yes [employer]: [employer] [place] - Review of Systems Constitutional: No Symptoms, No Fever, No Chills Eyes: No Symptoms Ears, Nose, & Throat: No Symptoms Respiratory: No Symptoms, No Cough, No Dyspnea Cardiac: No Symptoms, No Chest Pain, No Edema, No Syncope Abdominal/Gastrointestinal: No Symptoms, No Abdominal Pain, No Nausea, No Vomiting, No Diarrhea Genitourinary Symptoms: No Symptoms, No Dysuria Musculoskeletal: No Symptoms, No Back Pain, No Neck Pain Skin: No Symptoms, No Rash Neurological: No Symptoms, No Dizziness, No Focal Weakness, No Sensory Changes Psychological: No Symptoms Endocrine: No Symptoms Hematologic/Lymphatic: No Symptoms All Other Systems: Reviewed and Negative - Past Medical History Pertinent Past Medical History: Yes Neurological History: No Pertinent History ENT History: No Pertinent History Cardiac History: Coronary Artery Disease, High Cholesterol, Hypertension, Myocardial Infarction ([place]) Respiratory History: COPD Endocrine Medical History: Diabetes Type II Musculoskeletal History: Arthritis GI Medical History: GERD, Gallbladder Disease History: No Pertinent History Psycho-Social History: No Pertinent History Male Reproductive Disorders: Prostate Problems Other Medical History: "poor kidney function," BPH, insomnia - Past Surgical History Past Surgical History: Yes Neuro Surgical History: No Pertinent History Cardiac: CABG, Cardiac Stent Respiratory: No Pertinent History Gastrointestinal: Cholecystectomy Genitourinary: No Pertinent History Musculoskeletal: No Pertinent History Male Surgical History: No Pertinent History Other Surgical History: open heart surgery 2001 and 2006 - Social History Smoking Status: Former smoker Exposure to second hand smoke: No Drug Use: none Patient Lives Alone: No Significant Family History: heart disease (Father, not premature), other (Mother with hypothyroidism) - Nursing Vital Signs Nursing Vital Signs: Initial Vital Signs Temperature 98.5 F 12/01/22 15:26 Pulse Rate 81 12/01/22 15:26 Respiratory Rate 16 12/01/22 15:26 Blood Pressure 118/70 12/01/22 15:26 O2 Sat by Pulse Oximetry 96 12/01/22 15:26 Pain Scale Pain Intensity 0 - Physical Exam General Appearance: no apparent distress, alert Eye Exam: PERRL/EOMI, eyes nml inspection Ears, Nose, Throat Exam: normal ENT inspection, TMs normal, pharynx normal, moist mucous membranes Neck Exam: normal inspection, non-tender, supple, full range of motion Respiratory Exam: normal breath sounds, lungs clear, airway intact, No respiratory distress Cardiovascular Exam: regular rate/rhythm, normal heart sounds, normal peripheral pulses Gastrointestinal/Abdomen Exam: soft, normal bowel sounds, other, No tenderness, No mass Back Exam: normal inspection, normal range of motion, No CVA tenderness, No vertebral tenderness Extremity Exam: normal inspection, normal range of motion, pelvis stable Neurologic Exam: alert, oriented x 3, cooperative, normal mood/affect, nml cerebellar function, nml station & gait, sensation nml, No motor deficits Skin Exam: normal color, warm, dry, No rash Lymphatic Exam: No adenopathy SpO2 Interpretation: normal SpO2: 98 O2 Delivery: Room Air - Course Nursing assessment & vital signs reviewed: Yes - CT Exams Abdomen/Pelvis CT Interpretation: Tele-radiologist Report (Compared to 01/15/2022 diverticulosis without diverticulitis. No no acute findings.) Ordered Tests: Active Orders 24 hr Category Date Time Status EKG-ER Only STAT Care 12/01/22 16:00 Active Pulse Oximetry (ED) STAT Care 12/01/22 16:00 Active ABDOMEN AND PELVIS W/0 CONTRAS [CT] Stat Exams 12/01/22 18:41 Taken CBC W DIFF Stat Lab 12/01/22 16:11 Completed CMP Stat Lab 12/01/22 16:11 Completed LIPASE Stat Lab 12/01/22 18:40 Completed TROPONIN Q4H Lab 12/01/22 16:11 Completed TROPONIN Q4H Lab 12/01/22 18:40 Completed TROPONIN Q4H Lab 12/02/22 00:00 Ordered Lab/Rad Data: Laboratory Result Diagrams 12/01/22 16:11 12/01/22 16:11 Laboratory Results 12/01/22 12/01/22 12/01/22 Range/Units 18:40 18:40 16:11 WBC (4.0-10.5) x10^3/uL RBC (4.1-5.6) x10^6/uL Hgb (12.5-18.0) g/dL Hct (42-50) % MCV (78-100) fL MCH (26-32) pg MCHC (32-36) g/dL RDW (11.5-14.0) % Plt Count (150-450) x10^3/uL MPV (7.5-11.0) fL Gran % (36.0-66.0) % Immature Gran % (Auto) (0.00-0.4) % Nucleat RBC Rel Count (0.00-0.1) % Eos # (Auto) (0-0.5) x10^3/uL Immature Gran # (Auto) (0.00-0.03) x10^3u/L Absolute Lymphs (auto) (1.0-4.6) x10^3/uL Absolute Monos (auto) (0.0-1.3) x10^3/uL Absolute Nucleated RBC (0.00-0.01) x10^3u/L Lymphocytes % (24.0-44.0) % Monocytes % (0.0-12.0) % Eosinophils % (0.00-5.0) % Basophils % (0.0-0.4) % Absolute Granulocytes (1.4-6.9) x10^3/uL Basophils # (0-0.4) x10^3/uL Sodium 138 (137-145) mmol/L Potassium 4.7 (3.5-5.1) mmol/L Chloride 105 (98-107) mmol/L Carbon Dioxide 24 (22-30) mmol/L Anion Gap 13.8 (5-15) MEQ/L BUN 20 (9-20) mg/dL Creatinine 1.45 H (0.66-1.25) mg/dL Estimated GFR 52.9 ML/MIN Glucose 137 H (74-106) mg/dL Calcium 9.2 (8.4-10.2) mg/dL Total Bilirubin 0.60 (0.2-1.3) mg/dL AST 26 (17-59) U/L ALT 31 (0-50) U/L Alkaline Phosphatase 67 (38-126) U/L Troponin I < 0.012 < 0.012 (0.000-0.034) ng/mL Serum Total Protein 6.6 (6.3-8.2) g/dL Albumin 4.0 (3.5-5.0) g/dL Lipase 81 (23-300) U/L 12/01/22 Range/Units 16:11 WBC 6.8 (4.0-10.5) x10^3/uL RBC 4.73 (4.1-5.6) x10^6/uL Hgb 14.1 (12.5-18.0) g/dL Hct 42.5 (42-50) % MCV 89.9 (78-100) fL MCH 29.8 (26-32) pg MCHC 33.2 (32-36) g/dL RDW 12.8 (11.5-14.0) % Plt Count 228 (150-450) x10^3/uL MPV 9.0 (7.5-11.0) fL Gran % 67.1 H (36.0-66.0) % Immature Gran % (Auto) 0.3 (0.00-0.4) % Nucleat RBC Rel Count 0.0 (0.00-0.1) % Eos # (Auto) 0.26 (0-0.5) x10^3/uL Immature Gran # (Auto) 0.02 (0.00-0.03) x10^3u/L Absolute Lymphs (auto) 1.56 (1.0-4.6) x10^3/uL Absolute Monos (auto) 0.34 (0.0-1.3) x10^3/uL Absolute Nucleated RBC 0.00 (0.00-0.01) x10^3u/L Lymphocytes % 23.1 L (24.0-44.0) % Monocytes % 5.0 (0.0-12.0) % Eosinophils % 3.9 (0.00-5.0) % Basophils % 0.6 (0.0-0.4) % Absolute Granulocytes 4.53 (1.4-6.9) x10^3/uL Basophils # 0.04 (0-0.4) x10^3/uL Sodium (137-145) mmol/L Potassium (3.5-5.1) mmol/L Chloride (98-107) mmol/L Carbon Dioxide (22-30) mmol/L Anion Gap (5-15) MEQ/L BUN (9-20) mg/dL Creatinine (0.66-1.25) mg/dL Estimated GFR ML/MIN Glucose (74-106) mg/dL Calcium (8.4-10.2) mg/dL Total Bilirubin (0.2-1.3) mg/dL AST (17-59) U/L ALT (0-50) U/L Alkaline Phosphatase (38-126) U/L Troponin I (0.000-0.034) ng/mL Serum Total Protein (6.3-8.2) g/dL Albumin (3.5-5.0) g/dL Lipase (23-300) U/L - Progress Progress: improved Progress Note: Patient is a 57-year-old male presents to our ED for evaluation of a burning sensation in his chest. Patient has had this pain for several days. Patient was in our ED this week for the same. Cardiac work-up was negative at that time. Pain originates in the epigastrium. Symptoms appear to be an esophagitis possibly due to GERD. Patient has no other symptomology. No diaphoresis. No radiation of pain. Troponin negative x2. EKG reveals normal sinus rhythm. CT abdomen pelvis negative for acute pathology. Chemistry within normal limits. Creatinine elevated but appears to be at patient's baseline. Patient resting comfortably. He is currently asymptomatic. Will discharge home. Patient agrees to follow-up with his primary care doctor within 48 hours for evaluation. Portions of this note were created with voice recognition technology. There may be grammatical, spelling, punctuation or sound alike errors Complexity of problems addressed is moderate acute complicated No critical care time Complex of data reviewed and analyzed is moderate. Test ordered for test reviewed. Clinical correlation made between laboratory imaging studies and history and physical examination. Disposition based on these findings. Risk of complication and or risk morbidity/mortality of patient management is moderate. We will discharge home. Plan of care established for shared decision making. No social determinants of health present to impede follow-up. Vital stable. Time to discharge patient approximately 15 minutes. Portions of this note were created with voice recognition technology. There may be grammatical, spelling, punctuation or sound alike errors 12/01/22 20:29 Counseled pt/family regarding: lab results, diagnosis, need for follow-up, rad results - Departure Departure Disposition: Home Clinical Impression: Elevated serum creatinine, Epigastric pain, Chest pain Condition: Stable Critical Care Time: No Referrals: NALLELY CABRERA, GARCIA, RN [Primary Care Provider] - Follow up/PCP as directed Additional Instructions: Discharge/Care Plan ARTIEDULCE HODGES was seen on 12/01/22 in the Emergency Room. The patient was counseled regarding Diagnosis,Lab results, Imaging studies, need for follow up and when to return to the Emergency Room. Prescriptions given: Discharge Note I have spoken with the patient and/or caregivers. I have explained the patient's condition, diagnosis and treatment plan based on the information available to me at this time. I have answered the patient's and/or caregiver's questions and addressed any concerns. The patient and/or caregivers have as good understanding of the patient's diagnosis, condition and treatment plan as can be expected at this point. The vital signs have been stable. The patient's condition is stable and appropriate for discharge from the emergency department. The patient will pursue further outpatient evaluation with the primary care physician or other designated or consulting physician as outlined in the discharge instructions. The patient and/or caregivers are agreeable to this plan of care and follow-up instructions have been explained in detail. The patient and/or caregivers have received these instruction. The patient/and or caregivers are aware that any significant change in condition or worsening of symptoms should prompt an immediate return to this or the closest emergency department or call 911.
[2022-12-01 20:09] VITALS: BP 119/61; PULSE 51; RESP 16
[2022-12-01 20:26] VITALS: O2SAT 98
--- NOTE | 2022-12-02 08:47 | XRAY ---
Indication: Abdomen pain to us in 3 months. Multiple contiguous axial images obtained through the abdomen and pelvis without contrast. Comparison: October 15, 2021. Lung bases demonstrate stable small right base calcified granuloma. No infiltrate or effusion. Heart not enlarged. Stomach is distended with food/fluid. Noncontrasted stomach and bowel loops nonobstructed again with normal appendix. There remains mild scattered colonic diverticulosis without diverticulitis. Again small right adrenal adenoma, a few tiny hepatic calcified granulomas, and cholecystectomy. No free fluid/air. Main in liver, pancreas, spleen, adrenal glands, kidneys, ureters, and bladder are unremarkable for noncontrast exam. Stable mild scattered aortoiliac calcifications without AAA. Osseous structures intact again with minimal multilevel degenerative spondylosis and minimal grade 1 L4 listhesis. Impression: Again chronic findings including colonic diverticulosis, right adrenal adenoma, arteriosclerotic disease, chronic bony findings, and old granulomatous disease. No new/acute intra-abdominal/pelvic abnormalities on this noncontrast exam.
== END 2022-12-01 20:49 | disposition home or self-care (01) ==
LOC: ED 15:26
DX: R10.13 Epigastric pain (principal); R07.9 Chest pain, unspecified; R79.89 Other specified abnormal findings of blood chemistry; E78.5 Hyperlipidemia, unspecified; I10 Essential (primary) hypertension; E11.9 Type 2 diabetes mellitus without complications; Z79.02 Long term (current) use of antithrombotics/antiplatelets; Z79.84 Long term (current) use of oral hypoglycemic drugs; Z79.899 Other long term (current) drug therapy
CPT/HCPCS: 36415; 74176; 80053; 83690; 84484; 85025; 93005; 94760; 99284

== ENCOUNTER 2023-11-12 15:08 | Emergency (ER) | payer MEDICARE ==
--- NOTE | 2023-11-12 15:18 | ERPHSYRPT ---
- History of Present Illness Time Seen by Provider: 11/12/23 15:18 Source: patient Exam Limitations: no limitations Physician History: This is a 58-year-old white male patient who is right-handed and whose primary care provider is Dr. Tapia and presents to the emergency department on his own secondary to the skin laceration right hand first webspace. This occurred accidentally when he was using a wrench to work on lawnmower blades and the wrench slipped causing an avulsed, deep jagged laceration in the first webspace. Patient cannot flex his right thumb. Patient states that his tetanus is up-to-date having received in the last 3 to 4 years. Patient is diabetic, has hypertension and is taking Plavix. Timing/Duration: today Quality: painful Severity: moderate Location: hands (Right hand first webspace skin laceration) Associated Symptoms: denies symptoms Allergies/Adverse Reactions: No Known Drug Allergies Allergy (Verified 11/12/23 15:20) Home Medications: Aspirin [Aspir 81] 81 mg PO QHS 10/16/11 [History] Isosorbide Mononitrate 60 mg [Imdur 60MG] 60 mg PO DAILY 10/16/11 [History] lisinopriL [Lisinopril] 2.5 mg PO DAILY 10/16/11 [History] Clopidogrel Bisulfate [PLAVIX Tablet] 75 mg PO DAILY 10/01/14 [History] Glipizide 10 mg [Glucotrol 10 MG] 20 mg PO DAILY 10/01/14 [History] Metformin HCl 1,000 mg PO BID 10/01/14 [History] Zolpidem Tartrate [Ambien] 10 mg PO HSPRN PRN 10/01/14 [History] Metoprolol Succinate 25 mg Xl* [Toprol-Xl 25MG Tablets] 25 mg PO DAILY 01/15/22 [History] Rosuvastatin Calcium 40 mg PO QHS 01/15/22 [History] Albuterol 8 gm Mdi Hfa [Ventolin Hfa MDI] 2 puffs IH Q4H PRN PRN 11/05/22 [History] Empagliflozin [Jardiance] 10 mg PO DAILY 11/05/22 [History] Pregabalin 50 mg [Lyrica 50MG] 100 mg PO TID 11/05/22 [History] Tamsulosin HCl 0.4 mg [Flomax 0.4 MG] 0.4 mg PO DAILY 11/05/22 [History] Hx Tetanus, Diphtheria Vaccination/Date Given: Yes Hx Influenza Vaccination/Date Given: No Hx Pneumococcal Vaccination/Date Given: Yes (2015) Travel Risk - International Travel Have you traveled outside of the country in past 3 weeks: No - Emerging Infectious Disease Are you exhibiting symptoms associated with any current EIDs: No - Review of Systems Constitutional: No Symptoms Eyes: No Symptoms Ears, Nose, & Throat: No Symptoms Respiratory: No Symptoms Cardiac: No Symptoms Abdominal/Gastrointestinal: No Symptoms Musculoskeletal: Injury (Right hand skin laceration. Patient unable to flex his right thumb) Skin: Other (Jagged, avulsed, deep laceration right first webspace) Neurological: No Symptoms Psychological: No Symptoms Endocrine: No Symptoms Hematologic/Lymphatic: No Symptoms Immunological/Allergic: No Symptoms All Other Systems: Reviewed and Negative - Past Medical History Pertinent Past Medical History: Yes Neurological History: No Pertinent History ENT History: No Pertinent History Cardiac History: Coronary Artery Disease, High Cholesterol, Hypertension, Myocardial Infarction ([place]) Respiratory History: COPD Endocrine Medical History: Diabetes Type II Musculoskeletal History: Arthritis GI Medical History: GERD, Gallbladder Disease History: No Pertinent History Psycho-Social History: No Pertinent History Male Reproductive Disorders: Prostate Problems Other Medical History: "poor kidney function," BPH, insomnia - Past Surgical History Past Surgical History: Yes Neuro Surgical History: No Pertinent History Cardiac: CABG, Cardiac Stent Respiratory: No Pertinent History Gastrointestinal: Cholecystectomy Genitourinary: No Pertinent History Musculoskeletal: No Pertinent History Male Surgical History: No Pertinent History Other Surgical History: open heart surgery 2001 and 2006 Significant Family History: heart disease (Father, not premature), other (Mother with hypothyroidism) - Social History Smoking Status: Former smoker Exposure to second hand smoke: No Drug Use: none Patient Lives Alone: No - Nursing Vital Signs Nursing Vital Signs: Initial Vital Signs Temperature 97.0 F 11/12/23 15:34 Pulse Rate 78 11/12/23 15:34 Respiratory Rate 18 11/12/23 15:34 Blood Pressure 178/84 11/12/23 15:34 O2 Sat by Pulse Oximetry 97 11/12/23 15:34 Pain Scale Pain Intensity 4 - Physical Exam General Appearance: no apparent distress, alert, anxiety Eye Exam: PERRL/EOMI, eyes nml inspection Ears, Nose, Throat Exam: normal ENT inspection, moist mucous membranes Neck Exam: normal inspection, non-tender, supple, full range of motion Respiratory Exam: airway intact, No chest tenderness, No respiratory distress Gastrointestinal/Abdomen Exam: No tenderness Rectal Exam: not done Extremity Exam: normal inspection, pelvis stable, lacerations (Skin laceration jagged, avulsed and deep right hand first webspace), limited range of motion (Patient unable to flex his right thumb), tenderness (Right hand skin laceration site) Neurologic Exam: alert, oriented x 3, cooperative, patient admitting representative II-XII nml as tested, normal mood/affect, nml cerebellar function, nml station & gait, sensation nml Skin Exam: laceration (See extremity section for description) Lymphatic Exam: No adenopathy SpO2 Interpretation: normal - Course Nursing assessment & vital signs reviewed: Yes Ordered Tests: Active Orders 24 hr Category Date Time Status HAND (MINIMUM 3 VIEWS) Stat Exams 11/12/23 16:25 Completed Medication Summary Discontinued Medications Generic Name Dose Route Start Last Admin Trade Name Freq PRN Reason Stop Dose Admin Lidocaine HCl 10 ml 11/12/23 16:07 11/12/23 16:16 Lidocaine Hcl 1% 20 Ml Mdv 20 Ml Ml IJ 11/12/23 16:08 10 ml STAT ONE Administration Lidocaine HCl Confirm 11/12/23 16:08 Lidocaine Hcl 1% 20 Ml Mdv 20 Ml Ml Administered 11/12/23 16:09 Dose 10 ml .ROUTE .STK-MED ONE - Progress Progress: unchanged, pain not gone completely Progress Note: 11/12/23 16:21 My medical decision making and the assignment of low to moderate complexity of this patient's medical issue today is based on review of the patient's past medical history, review the patient's medication list, review the patient drug allergy list, history present illness and physical findings on examination. The patient workup, and my review today, does not necessitate laboratory radiographic studies. The patient has a deep, right hand, first webspace, avulsed, jagged edge laceration. There is skin edge bleed. More importantly, the patient cannot flex his right thumb. I do not think this is simply a pain issue but likely a tendon injury. We will clean the site, inject the site with 10 mL of 1% lidocaine plain, Place a nonstick gauze, 4 x 4's, placed in an anatomic position by holding a full Curlex and then wrapped with Kerlix and an Rod wrap. We will provide the patient with Keflex oral antibiotics and remotely send both prescription for Keflex and Percocet to his pharmacy. We will contact the hand surgeon. The patient is on Plavix and we will obtain further management instructions from the hand surgeon. 11/12/23 17:[address] Jarquin, the hand surgeon out of [facility]. I reviewed the patient history, chief complaint, physical findings on examination. The patient is on Plavix and has some coronary artery disease and has had coronary stents and a CABG in the past. We will have the patient see Dr. Jarquin, per Dr. Jarquin's request on 11/15/2023. The emergency department nursing staff secured an appointment at 8:30 AM on 11/06/2023. Dr. Moore's instruction is to ice the area 3-4 times a day and to elevate the right hand. We remotely sent a prescription for Percocet and Keflex to his pharmacy. 11/12/23 17:03 The preliminary report of the right hand x-ray was interpreted by me. I do not see any acute fracture or dislocation. Counseled pt/family regarding: diagnosis, need for follow-up, rad results Medical Desision Making - Diagnostic Testing Diagnostic test were ordered, analyzed, and reviewed by me: Yes Radiological Interpretation: Interpreted by me - Risk of complications The pt has a mod risk of morbidity or mortality based on: Need for prescription drug management - Departure Departure Disposition: Home Clinical Impression: Laceration of flexor tendon of right hand Condition: Stable Critical Care Time: No Referrals: CALEB TAPIA DO [Primary Care Provider] - Follow up/PCP as directed RAHEEL JARQUIN [NON-STAFF PHY W/O PRIVILEGES] - Follow up/PCP as directed Additional Instructions: Follow-up with Dr. Jarquin (hand surgeon) on 11/15/2023 at 8:30 AM. Elevate your right hand is much as possible above the level of your heart. Ice pack to this area 3-4 times a day. Take your antibiotics and pain medicine as prescribed. If you have any concerns over the weekend, proceed to [facility] emerge ncy department where Dr. Jarquin performs surgeries. Prescriptions: Oxycodone HCl/Acetaminophen [Percocet 5-325 mg Tablet] 1 each PO Q8H PRN PRN #6 tablet MDD 3 PRN Reason: Moderate To Severe Pain Cephalexin Mh 500 mg [Keflex 500 mg] 500 mg PO TID #21 cap
[2023-11-12 15:34] VITALS: BP 178/84; TEMP 97
[2023-11-12] MEDS ORDERED: XYLOCAINE 1% HCL 20 ML MDV ONE (16:08)
[2023-11-12] MEDS: XYLOCAINE 1% HCL 20 ML MDV IJ ONE (16:16)
--- NOTE | 2023-11-12 16:41 | XRAY ---
Indication: Injury. Laceration. Comparison: None 3 view right hand demonstrates soft tissue swelling/laceration between 1st/2nd digits without radiopaque foreign body. 4 mm well-circumscribed heterotopic ossification anterior to radiocarpal junction either degenerative versus old injury. No other bony, articular, or soft tissue abnormalities.
[2023-11-12 17:26] VITALS: PULSE 72; RESP 16; O2SAT 96
== END 2023-11-12 17:26 | disposition home or self-care (01) ==
LOC: ED 15:08
DX: S66.021A Laceration of long flexor muscle, fascia and tendon of right thumb at wrist and hand level, initial encounter (principal); S61.411A Laceration without foreign body of right hand, initial encounter; W27.8XXA Contact with other nonpowered hand tool, initial encounter; I10 Essential (primary) hypertension; E11.9 Type 2 diabetes mellitus without complications; E78.5 Hyperlipidemia, unspecified; Z79.02 Long term (current) use of antithrombotics/antiplatelets; Z79.84 Long term (current) use of oral hypoglycemic drugs; Z79.891 Long term (current) use of opiate analgesic; Z79.899 Other long term (current) drug therapy
CPT/HCPCS: 29125; 73130; 96372; 99283